=== PATIENT | female | born 1950 | race African-American/Black ===

== ENCOUNTER 2020-04-06 11:12 | Inpatient (IN) | payer OTHER ==
[~2020-04-06] VITALS: Ht 158.8 cm; Wt 81.1 kg
[2020-04-06] MEDS ORDERED: SODIUM CHLORIDE 0.9% 1,000 ML IV ONE (11:30)
[2020-04-06] MEDS ORDERED: ONDANSETRON HCL 4 MG/2 ML VIAL IV ONE (11:30)
[2020-04-06] MEDS ORDERED: MORPHINE SULFATE INJECTION 2 MG/ML SYRG IV ONE (11:30)
[2020-04-06 12:25] LABS: Basophils # (auto) 0 10 ^3/uL (0-0.2); Basophils % (auto) 0.2 % (0.0-2.0); Eosinophils # (auto) 0 10 ^3/uL (0-0.8); Eosinophils % (auto) 0.7 % (0.0-7.0); Hematocrit 38.5 % (36.0-46.0); Hemoglobin 12.8 g/dL (12.2-16.2); Lymphocytes # (auto) 1.1 10 ^3/uL (0.4-5.4); Lymphocytes % (auto) 22.6 % (10.0-50.0); Mean Corpuscular Hemoglobin 31.9 pg (28.0-32.0); Mean Corpuscular Hgb Conc. 33.3 g/dL (32.0-36.0); Mean Corpuscular Volume 95.7 fL (80.0-100.0); Monocytes # (auto) 0.3 10 ^3/uL (0-1.3); Monocytes % (auto) 6.5 % (0.0-12.0); Neutrophils # (auto) 3.4 10 ^3/uL (1.6-8.6); Red Blood Cells 4.02 10^6/uL (4.0-5.20); Red Cell Distribution Width 13.3 % (11.8-14.3); White Blood Cell 4.8 10^3/uL (4.4-10.8)
[2020-04-06 12:45] LABS: Urine Bacteria FEW /hpf (None Seen); Urine Blood Negative /uL (Negative); Urine Mucus FEW (None Seen); Urine Specific Gravity 1.025 (1.001-1.035); Urine WBC 14 /hpf (0 - 5)
[2020-04-06 12:53] LABS: Albumin 3.5 g/dL (3.4-5.0); Calcium 8.5 mg/dL (8.5-10.1); Potassium 4.5 mmol/L (3.5-5.1)
[2020-04-06 12:58] LABS: BUN/Creatinine Ratio 17.8; Bilirubin, Total 0.6 mg/dL (0.2-1.0); Total Protein 6.8 g/dL (6.4-8.2)
[2020-04-06] MEDS ORDERED: cefTRIAXone 1GM/50ML D5W 50 ML IV ONE (16:00)
[2020-04-06] MEDS ORDERED: ENOXAPARIN SOD 80 MG/0.8ML SYRINGE SC ONE (16:00)
[2020-04-06] MEDS ORDERED: ACETAMINOPHEN 500 MG TAB PO PRN ×2 (17:00)
[2020-04-06] MEDS ORDERED: DOCUSATE CALCIUM 240 MG CAP PO PRN (17:00)
[2020-04-06] MEDS ORDERED: MORPHINE SULFATE INJECTION 2 MG/ML SYRG IV PRN (17:00)
[2020-04-06] MEDS ORDERED: hydrALAZINE HCL 20 MG/ML VL IV PRN (17:00)
[2020-04-06] MEDS ORDERED: LORazepam 0.5 MG TAB PO PRN (17:00)
[2020-04-06] MEDS ORDERED: NITROGLYCERIN 0.4 MG SL TAB SL PRN (17:00)
[2020-04-06] MEDS: ONDANSETRON HCL 4 MG/2 ML VIAL IV PRN ×2 (20:51→21:14)
[2020-04-06] MEDS: BUDESONIDE (INHALATION) 180 MCG IH IN SCH (22:00)
[2020-04-06] MEDS ORDERED: ENOXAPARIN SOD 40 MG/0.4 ML SYRINGE SC SCH (22:00)
[2020-04-07 01:46] VITALS: BP 153/91
[2020-04-07] MEDS: BUDESONIDE (INHALATION) 180 MCG IH IN SCH ×2 (06:55→22:00)
[2020-04-07 07:31] LABS: Basophils # (auto) 0 10 ^3/uL (0-0.2); Basophils % (auto) 0.2 % (0.0-2.0); Eosinophils # (auto) 0 10 ^3/uL (0-0.8); Hematocrit 40.6 % (36.0-46.0); Hemoglobin 13.6 g/dL (12.2-16.2); Lymphocytes # (auto) 0.9 10 ^3/uL (0.4-5.4); Lymphocytes % (auto) 17.7 % (10.0-50.0); Mean Corpuscular Hemoglobin 31.9 pg (28.0-32.0); Mean Corpuscular Hgb Conc. 33.6 g/dL (32.0-36.0); Mean Corpuscular Volume 94.9 fL (80.0-100.0); Monocytes # (auto) 0.3 10 ^3/uL (0-1.3); Monocytes % (auto) 6.7 % (0.0-12.0); Neutrophils # (auto) 3.9 10 ^3/uL (1.6-8.6); Neutrophils % (auto) 75.4 % (37.0-80.0); Nucleated Red Blood Cells % 0.1 %; Red Blood Cells 4.28 10^6/uL (4.0-5.20); Red Cell Distribution Width 13.4 % (11.8-14.3); White Blood Cell 5.1 10^3/uL (4.4-10.8)
[2020-04-07 08:00] VITALS: BP 149/92
[2020-04-07 08:08] LABS: Albumin 3.4 g/dL (3.4-5.0); Calcium 8.5 mg/dL (8.5-10.1); Potassium 3.5 mmol/L (3.5-5.1)
[2020-04-07 08:16] LABS: BUN/Creatinine Ratio 14.7; Bilirubin, Total 0.6 mg/dL (0.2-1.0); Total Protein 6.9 g/dL (6.4-8.2)
[2020-04-07 08:36] LABS: Magnesium 2.3 mg/dL (1.6-2.6)
[2020-04-07 08:38] LABS: CRP High Sensitivity 0.14 mg/dL (< 0.3)
[2020-04-07] MEDS: cefTRIAXone 1GM/50ML D5W 50 ML IV SCH (09:10)
[2020-04-07] MEDS: ASCORBIC ACID 1,000 MG TAB PO SCH (10:00)
[2020-04-07] MEDS: CHOLECALCIFEROL (VITD3) 2,000 UNIT CAP/TAB PO SCH (10:00)
[2020-04-07] MEDS: ZINC SULFATE 220mg CAP or TAB PO SCH (10:00)
[2020-04-07] MEDS ORDERED: ENOXAPARIN SOD 80 MG/0.8ML SYRINGE SC SCH (10:00)
[2020-04-07] MEDS ORDERED: PANTOPRAZOLE 40 MG TAB PO SCH (10:00)
[2020-04-07] MEDS: ONDANSETRON HCL 4 MG/2 ML VIAL IV PRN ×2 (11:28→16:54)
[2020-04-07] MEDS ORDERED: PANTOPRAZOLE 40 MG/10 ML VIAL INJ IV ONE (11:45)
[2020-04-07] MEDS ORDERED: ASPirin 81 mg TAB PO ONE (11:45)
[2020-04-07] MEDS ORDERED: IODIXANOL 320MG/ML 100ML BTL IV ONE (12:45)
[2020-04-07] MEDS ORDERED: LIDOCAINE 2%HCL (LOCAL ANESTH.) INJ 20ML MDV ONE (12:45)
[2020-04-07] MEDS ORDERED: VERAPAMIL 2.5MG/ML INJ 2ML VIAL IV ONE (12:46)
[2020-04-07] MEDS ORDERED: ANGIOMAX 250 MG VIAL IV ONE ×2 (12:46→13:40)
[2020-04-07] MEDS ORDERED: MIDAZOLAM HCL 2MG/2ML 2ml VIAL (1mg/ml) ONE (12:46)
[2020-04-07] MEDS ORDERED: fentaNYL CITRATE 100 MCG/2 ML VL ONE (12:46)
[2020-04-07] MEDS ORDERED: SODIUM CHL 0.9% 50 ML ONE ×2 (12:46→13:40)
[2020-04-07] MEDS ORDERED: ASPirin 81 mg TAB ONE (13:56)
[2020-04-07] MEDS ORDERED: TICAGRELOR 90 MG TAB ONE (13:56)
[2020-04-07] MEDS ORDERED: ONDANSETRON HCL 4 MG/2 ML VIAL ONE (14:10)
[2020-04-07 16:00] VITALS: BP 163/85
[2020-04-07] MEDS: TICAGRELOR 90 MG TAB PO SCH (22:11)
[2020-04-07] MEDS: METOPROLOL TARTRATE 25 MG TAB PO SCH (22:12)
[2020-04-07] MEDS: ATORVASTATIN 20 MG TAB PO SCH (22:12)
[2020-04-07 23:40] VITALS: BP 145/73
[2020-04-08 08:00] VITALS: BP 135/71
[2020-04-08 08:02] LABS: Basophils # (auto) 0 10 ^3/uL (0-0.2); Basophils % (auto) 0.1 % (0.0-2.0); Eosinophils # (auto) 0 10 ^3/uL (0-0.8); Hematocrit 40.2 % (36.0-46.0); Hemoglobin 13.7 g/dL (12.2-16.2); Lymphocytes # (auto) 0.8 10 ^3/uL (0.4-5.4); Mean Corpuscular Volume 94.2 fL (80.0-100.0); Monocytes # (auto) 0.7 10 ^3/uL (0-1.3); Monocytes % (auto) 7.6 % (0.0-12.0); Neutrophils # (auto) 7.4 10 ^3/uL (1.6-8.6); Neutrophils % (auto) 83.3 % (37.0-80.0); Nucleated Red Blood Cells % 0.1 %; Red Blood Cells 4.27 10^6/uL (4.0-5.20); Red Cell Distribution Width 13.3 % (11.8-14.3); White Blood Cell 8.9 10^3/uL (4.4-10.8)
[2020-04-08 08:26] LABS: Calcium 8.8 mg/dL (8.5-10.1); Magnesium 2.3 mg/dL (1.6-2.6); Potassium 3.9 mmol/L (3.5-5.1)
[2020-04-08 08:29] LABS: BUN/Creatinine Ratio 15.1
[2020-04-08] MEDS: ZINC SULFATE 220mg CAP or TAB PO SCH (09:29)
[2020-04-08] MEDS: cefTRIAXone 1GM/50ML D5W 50 ML IV SCH (09:29)
[2020-04-08] MEDS: TICAGRELOR 90 MG TAB PO SCH ×2 (09:29→21:56)
[2020-04-08] MEDS: ASPirin 81 mg TAB PO SCH (09:29)
[2020-04-08] MEDS: ASCORBIC ACID 1,000 MG TAB PO SCH (09:29)
[2020-04-08] MEDS: CHOLECALCIFEROL (VITD3) 2,000 UNIT CAP/TAB PO SCH (09:30)
[2020-04-08] MEDS: METOPROLOL TARTRATE 25 MG TAB PO SCH ×2 (09:34→21:56)
[2020-04-08] MEDS: BUDESONIDE (INHALATION) 180 MCG IH IN SCH ×2 (10:00→20:31)
[2020-04-08] MEDS ORDERED: PANTOPRAZOLE 40 MG/10 ML VIAL INJ IV SCH (10:00)
[2020-04-08] MEDS: ALBUTEROL SULF HFA 90MCG INH 200DOSE IN PRN ×2 (14:16→20:31)
[2020-04-08 16:00] VITALS: BP 141/75
[2020-04-08] MEDS ORDERED: PANTOPRAZOLE 40 MG TAB PO ONE (16:45)
[2020-04-08] MEDS: ATORVASTATIN 20 MG TAB PO SCH (21:56)
[2020-04-09] VITALS: BP 130/60
[2020-04-09 07:21] LABS: Basophils # (auto) 0 10 ^3/uL (0-0.2); Basophils % (auto) 0.1 % (0.0-2.0); Eosinophils # (auto) 0 10 ^3/uL (0-0.8); Hematocrit 39.2 % (36.0-46.0); Hemoglobin 13.2 g/dL (12.2-16.2); Lymphocytes # (auto) 0.9 10 ^3/uL (0.4-5.4); Mean Corpuscular Hemoglobin 31.5 pg (28.0-32.0); Mean Corpuscular Hgb Conc. 33.7 g/dL (32.0-36.0); Mean Corpuscular Volume 93.5 fL (80.0-100.0); Monocytes # (auto) 0.8 10 ^3/uL (0-1.3); Monocytes % (auto) 9.5 % (0.0-12.0); Neutrophils # (auto) 6.7 10 ^3/uL (1.6-8.6); Neutrophils % (auto) 79.4 % (37.0-80.0); Nucleated Red Blood Cells % 0.1 %; Red Blood Cells 4.19 10^6/uL (4.0-5.20); Red Cell Distribution Width 13.4 % (11.8-14.3); White Blood Cell 8.4 10^3/uL (4.4-10.8)
[2020-04-09 07:44] LABS: Calcium 8.4 mg/dL (8.5-10.1); Potassium 3.1 mmol/L (3.5-5.1)
[2020-04-09 08:00] VITALS: BP 136/71
[2020-04-09] MEDS: TICAGRELOR 90 MG TAB PO SCH ×2 (09:20→22:33)
[2020-04-09] MEDS: cefTRIAXone 1GM/50ML D5W 50 ML IV SCH (09:21)
[2020-04-09] MEDS: PANTOPRAZOLE 40 MG TAB PO SCH (09:21)
[2020-04-09] MEDS: ZINC SULFATE 220mg CAP or TAB PO SCH (09:22)
[2020-04-09] MEDS: CHOLECALCIFEROL (VITD3) 2,000 UNIT CAP/TAB PO SCH (09:22)
[2020-04-09] MEDS: ASCORBIC ACID 1,000 MG TAB PO SCH (09:22)
[2020-04-09] MEDS: METOPROLOL TARTRATE 25 MG TAB PO SCH ×2 (09:23→22:32)
[2020-04-09] MEDS: BUDESONIDE (INHALATION) 180 MCG IH IN SCH ×2 (09:48→19:38)
[2020-04-09] MEDS: ALBUTEROL SULF HFA 90MCG INH 200DOSE IN PRN (10:33)
[2020-04-09] MEDS ORDERED: POTASSIUM CHL 20 Meq TABLET PO ONE (12:45)
[2020-04-09] MEDS: ASPirin 81 mg TAB PO SCH (13:38)
[2020-04-09 15:41] VITALS: BP 123/57
[2020-04-09] MEDS: ATORVASTATIN 20 MG TAB PO SCH (22:33)
[2020-04-10] VITALS: BP_SYST 118; BP_SYST 127; BP_DIAS 62; BP_DIAS 64
[2020-04-10] MEDS: BUDESONIDE (INHALATION) 180 MCG IH IN SCH (07:18)
[2020-04-10] MEDS: ALBUTEROL SULF HFA 90MCG INH 200DOSE IN PRN (07:18)
[2020-04-10 08:00] VITALS: BP 109/56
[2020-04-10] MEDS: cefTRIAXone 1GM/50ML D5W 50 ML IV SCH (09:08)
[2020-04-10] MEDS: METOPROLOL TARTRATE 25 MG TAB PO SCH (10:00)
[2020-04-10 11:08] VITALS: BP 127/64
[2020-04-10] MEDS: ASCORBIC ACID 1,000 MG TAB PO SCH (11:18)
[2020-04-10] MEDS: PANTOPRAZOLE 40 MG TAB PO SCH (11:18)
[2020-04-10] MEDS: ASPirin 81 mg TAB PO SCH (11:18)
[2020-04-10] MEDS: ZINC SULFATE 220mg CAP or TAB PO SCH (11:18)
[2020-04-10] MEDS: CHOLECALCIFEROL (VITD3) 2,000 UNIT CAP/TAB PO SCH (11:19)
[2020-04-10] MEDS: TICAGRELOR 90 MG TAB PO SCH (11:20)
[2020-04-10 16:00] VITALS: BP 92/58
== END 2020-04-10 17:05 | disposition home health service (06) | DRG 246 ==
LOC: EDBD 11:12 → ER 11:12 → TELE 11:13 → TELE-EAST 23:42
PROVIDERS: ADMIT Family Medicine; ATTEND Internal Medicine
PROC: 027035Z Dilation of Coronary Artery, One Artery with Two Drug-eluting Intraluminal Devices, Percutaneous Approach (ICD-10-PCS; principal; 2020-04-07)
PROC: B211YZZ Fluoroscopy of Multiple Coronary Arteries using Other Contrast (ICD-10-PCS; 2020-04-07)
PROC: 4A023N7 Measurement of Cardiac Sampling and Pressure, Left Heart, Percutaneous Approach (ICD-10-PCS; 2020-04-07)
DX: I21.4 Non-ST elevation (NSTEMI) myocardial infarction (principal); U07.1 COVID-19; J12.82 Pneumonia due to coronavirus disease 2019; N39.0 Urinary tract infection, site not specified; R73.9 Hyperglycemia, unspecified; I10 Essential (primary) hypertension; E66.9 Obesity, unspecified; Z68.32 Body mass index [BMI] 32.0-32.9, adult; E78.5 Hyperlipidemia, unspecified; I25.10 Atherosclerotic heart disease of native coronary artery without angina pectoris
CPT/HCPCS: 36415; 71045; 80048; 80053; 80061; 81001; 82306; 82728; 82962; 83036; 83605; 83615; 83735; 84443; 84484; 85025; 85379; 86141; 87426; 92928; 92929; 93005; 93306; 93458; 94640; 96361; 96365; 96372; 96375; 97163; 99152; 99153; C1874; G0378; J0696; J2250; J2405; Q9967